=== PATIENT | male | born 1980 | race Caucasian/White ===

== ENCOUNTER 2020-01-11 15:14 | Outpatient (REF) | payer MEDICAID, SELFPAY | END 2020-01-11 15:15 | disposition home or self-care (01) | LOC: HO.LAB 15:14 | PROVIDERS: Visit Provider Internal Medicine | DX: Z20.828 Contact with and (suspected) exposure to other viral communicable diseases (principal) | CPT/HCPCS: C9803; U0003 ==

== ENCOUNTER 2020-01-15 13:47 | Outpatient (REF) | payer MEDICAID, SELFPAY ==
--- NOTE | 2020-01-15 14:03 | XR_ITS ---
EXAMINATION: XR ELBOW, RIGHT CLINICAL INFORMATION: Pain COMPARISON: None TECHNIQUE: AP, lateral, and oblique views of the right elbow. FINDINGS: Bone alignment is normal. No fracture or dislocation is seen. The joint spaces are normal. There is no joint effusion. There is a small osteophyte at the triceps tendon insertion to the olecranon. XR/XR lumbar spine 2-3V IMPRESSION: Small osteophyte at the triceps tendon insertion to the olecranon. EXAMINATION: Lumbar spine x-ray CLINICAL INFORMATION: Pain COMPARISON: Previous exam January 2014 TECHNIQUE: 3 views of the lumbar spine FINDINGS: Bone alignment is normal. No fracture or dislocation is seen. Disc spaces are normal. There is degenerative spondylosis at L4-L5. There is mild lower lumbar spine facet arthritis. IMPRESSION: Mild degenerative changes. EXAMINATION: Right knee x-ray CLINICAL INFORMATION: Pain COMPARISON: None. TECHNIQUE: 4 views of the right knee FINDINGS: Bone alignment is normal. No fracture or dislocation is seen. Joint spaces are normal. There is no joint effusion. There is a small osteophyte at the quadriceps tendon insertion to the patella. IMPRESSION: Small osteophyte at the quadriceps tendon insertion to the patella.
--- NOTE | 2020-01-15 14:03 | XR_ITS ---
EXAMINATION: XR ELBOW, RIGHT CLINICAL INFORMATION: Pain COMPARISON: None TECHNIQUE: AP, lateral, and oblique views of the right elbow. FINDINGS: Bone alignment is normal. No fracture or dislocation is seen. The joint spaces are normal. There is no joint effusion. There is a small osteophyte at the triceps tendon insertion to the olecranon. XR/XR elbow RT min 3V IMPRESSION: Small osteophyte at the triceps tendon insertion to the olecranon. EXAMINATION: Lumbar spine x-ray CLINICAL INFORMATION: Pain COMPARISON: Previous exam January 2014 TECHNIQUE: 3 views of the lumbar spine FINDINGS: Bone alignment is normal. No fracture or dislocation is seen. Disc spaces are normal. There is degenerative spondylosis at L4-L5. There is mild lower lumbar spine facet arthritis. IMPRESSION: Mild degenerative changes. EXAMINATION: Right knee x-ray CLINICAL INFORMATION: Pain COMPARISON: None. TECHNIQUE: 4 views of the right knee FINDINGS: Bone alignment is normal. No fracture or dislocation is seen. Joint spaces are normal. There is no joint effusion. There is a small osteophyte at the quadriceps tendon insertion to the patella. IMPRESSION: Small osteophyte at the quadriceps tendon insertion to the patella.
--- NOTE | 2020-01-15 14:03 | XR_ITS ---
EXAMINATION: XR ELBOW, RIGHT CLINICAL INFORMATION: Pain COMPARISON: None TECHNIQUE: AP, lateral, and oblique views of the right elbow. FINDINGS: Bone alignment is normal. No fracture or dislocation is seen. The joint spaces are normal. There is no joint effusion. There is a small osteophyte at the triceps tendon insertion to the olecranon. XR/XR knee RT 4V IMPRESSION: Small osteophyte at the triceps tendon insertion to the olecranon. EXAMINATION: Lumbar spine x-ray CLINICAL INFORMATION: Pain COMPARISON: Previous exam January 2014 TECHNIQUE: 3 views of the lumbar spine FINDINGS: Bone alignment is normal. No fracture or dislocation is seen. Disc spaces are normal. There is degenerative spondylosis at L4-L5. There is mild lower lumbar spine facet arthritis. IMPRESSION: Mild degenerative changes. EXAMINATION: Right knee x-ray CLINICAL INFORMATION: Pain COMPARISON: None. TECHNIQUE: 4 views of the right knee FINDINGS: Bone alignment is normal. No fracture or dislocation is seen. Joint spaces are normal. There is no joint effusion. There is a small osteophyte at the quadriceps tendon insertion to the patella. IMPRESSION: Small osteophyte at the quadriceps tendon insertion to the patella.
== END 2020-01-15 13:48 | disposition home or self-care (01) ==
LOC: HO.XRAY 13:47
PROVIDERS: Absent Provider Family Medicine; PCP Family Medicine; Visit Provider Emergency Medicine
DX: M25.521 Pain in right elbow (principal); M25.561 Pain in right knee; M54.5 Low back pain
CPT/HCPCS: 72100; 73080; 73564

== ENCOUNTER → 2020-07-08 08:31 | Outpatient (BNVA) | payer SELFPAY | PROVIDERS: PCP Family Medicine; Visit Provider Internal Medicine | DX: Z02.79 Encounter for issue of other medical certificate (principal) ==

== ENCOUNTER 2024-05-08 07:56 | Emergency (ER) | payer BC, SELFPAY ==
--- NOTE | ~2024-05-08 | US_ITS ---
EXAMINATION: US ABDOMEN LIMITED HISTORY: RUQ pain, rule out gallbladder pathology TECHNIQUE: Real-time grayscale ultrasound imaging of the right upper quadrant was performed and images were reviewed. COMPARISON: Comparison is made with the prior examination dated 01/30/2019. FINDINGS: Sonographic examination of the gallbladder was performed. Multiple shadowing calculi are noted in the gallbladder. There is no wall thickening or pericholecystic fluid. The technologist reports a positive sonographic Jang sign, however. The common bile duct is normal in caliber measuring 3 mm in diameter. Incidental note is made of hepatic steatosis with focal fatty sparing adjacent to the gallbladder. US/US abdomen limited IMPRESSION: Cholelithiasis and a positive sonographic Jang's sign. Findings are consistent with acute cholecystitis. Electronically signed by: Enoch Walsh MD 05/08/2024 10:17 AM EDT RP
--- NOTE | ~2024-05-08 | XR_ITS ---
EXAMINATION: XR CHEST 2 VIEWS HISTORY: productive cough COMPARISON: Comparison is made with the prior examination dated 12/02/2016. FINDINGS: PA and lateral views of the chest are submitted. There is chronic elevation of the right hemidiaphragm. There is no pleural effusion, pneumothorax, or pulmonary vascular congestion. The heart is normal in size. There is degenerative disc disease of the spine. The patient is status post internal fixation of the right 5th rib. XR/XR chest 2V IMPRESSION: No acute cardiopulmonary abnormality. Electronically signed by: Enoch Walsh MD 05/08/2024 08:56 AM EDT
--- NOTE | 2024-05-08 07:58 | ECG_ITS ---
Test Reason : chest pain Blood Pressure : */* mmHG Vent. Rate : 86 BPM Atrial Rate : 86 BPM P-R Int : 132 ms QRS Dur : 94 ms QT Int : 386 ms P-R-T Axes : 25 7 21 degrees QTcB Int : 461 ms Normal sinus rhythm Minimal voltage criteria for LVH, may be normal variant ( R in aVL ) Borderline ECG When compared with ECG of 08-Jan-2019 13:03, No significant changes seen Referred By: Generic ED Physician Electronically Signed By: SILVERIO BARRIGA
[2024-05-08 08:09] VITALS: BP 129/90; PULSE 85; RESP 16; TEMP 36.8; O2SAT 97; BMI 34.6
[2024-05-08 08:25] LABS: IDNOW Serial# 58CA691E; Strep A Nucleic Acid Negative (Negative)
[2024-05-08 08:35] LABS: Basophils Percent Auto 0.3 % (0-2); Eosinophils Absolute Auto 0.1 X10*3/uL (0.0-0.4); Eosinophils Percent Auto 2.9 % (0-4); Hematocrit 42.7 % (42.0-52.0); Hemoglobin 15.2 g/dl (14.0-18.0); Imm Gran Abs Auto 0.01 X10*3/uL (0.00-0.03); Imm Gran Pct Auto 0.3 % (0.0-0.4); Lymphocytes Absolute Auto 1.7 X10*3/uL (1.2-4.9); MANUAL DIFF FLAG SCAN; Mean Corpuscular HGB Conc 35.6 g/dl (31.0-36.0); Mean Corpuscular Hemoglobin 29.9 pg (27.0-33.0); Mean Corpuscular Volume 84.1 fL (80.0-98.0); Monocytes Absolute Auto 0.4 X10*3/uL (0.1-1.2); Monocytes Percent Auto 10.1 % (2-11); Neutrophils Absolute Auto 1.5 x10*3/uL (2.0-8.3); Neutrophils Percent Auto 40.4 % (45-73); Platelet Count 172 X10*3/uL (160-400); Red Blood Count 5.08 X10*6/uL (4.60-5.80); Red Cell Distribution Width 13.7 % (11.0-16.0); SCAN SMEAR FLAG 1; White Blood Count 3.8 X10*3/uL (4.8-10.8)
[2024-05-08 08:36] LABS: Appearance Urine Clear; Color Urine Dark Yellow; Glucose Urine UA Negative (Negative); Leukocyte Esterase Urine Trace (Negative); Nitrite Urine Negative (Negative); PH 5.5 (5.0-9.0); UMIC TRIGGER UACC YES; Urine Blood Negative (Negative); Urine Ketones Trace mg/dL (Negative); Urine Protein 30 (1+) mg/dL (Neg-Trace)
[2024-05-08 08:41] LABS: Bacteria Urine None Seen (None Seen); Hyaline Casts Urine 0-2 /LPF (0-2); RBC Urine 0-2 /HPF (0-2); WBC Urine 0-5 /HPF (0-5)
[2024-05-08 08:55] LABS: Alanine Aminotransferase 60 U/L (0-40); Albumin Level 4.3 g/dL (3.5-5.0); Alkaline Phosphatase 79 U/L (39-117); Anion Gap 9 (12-20); Aspartate Amino Transferase 47 U/L (5-37); Bilirubin Direct 0.2 mg/dL (0.0-0.5); Bilirubin Total 0.7 mg/dL (0.0-1.0); Blood Urea Nitrogen 14 mg/dL (9-16); Calcium 8.8 mg/dL (8.4-10.2); Carbon Dioxide 30 mmol/L (22-29); Chloride 103 mmol/L (96-108); Creatinine Clr Calc Pharmacy 125.2; Estimated Glomerular Filt Rate > 60; Glucose Random 116 mg/dL (60-115); Lipase 43 U/L (8-78); Potassium 3.4 mmol/L (3.3-5.1); Sodium 139 mmol/L (135-145); Total Protein 7.4 g/dL (6.5-8.0)
[2024-05-08 09:00] LABS: SLIDE REVIEW VERIFIED
--- NOTE | 2024-05-08 09:07 | ED_ITS ---
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 He is accompanied by his son who is fluent in Telugu. history was obtained both by himself his son as well as a formal distribution center administrator and person. For the last week patient has had a dry cough but only productive with yellow sputum 1st thing in the morning. He has little bit of nasal congestion but he is denying having a sore throat. Does have body aches but no joint pain and no rashes. He reports when he coughs really hard it makes him feel winded and wheeze. he has not had his own inhaler in many years. His son however who was not with him today does have asthma and he has been bothering his inhaler using it 3 to 5 times a day for it helps with his cough. his albuterol rescue inhaler only. Reports intermittent abdominal pain in his right upper quadrant that comes and goes sometimes worse with food. He admits to having a poor appetite and not avoiding any aggravating foods that makes both his GERD as well as gallbladder painful. He reports it as colicky like in nature it is always present and dull never severe no radiation to his back. Denies any angina. He has had no fevers and no chills denying any nausea vomiting and no diarrhea. He is able tolerate p.o. fluids and void regularly. No rashes no travel. Family at home sick With respiratory symptoms well - no one but him and his son who is present has sought medical attention for their sxs. Patient admits to regular EtOH use on the weekends only when he consumes alcohol he does admit to smoking a few tobacco cigarettes. Other than that he is sober during the week. Denies any illicit drug use. About 5 years ago patient was diagnosed with gallstones and was supposed to have surgery to remove it but as he was not interested in this management he stopped going. He has had an endoscopy as well as imaging before per via current GERD he used to take omeprazole but he stopped taking that too. Patient was also referred to pain management for control of his biliary colic but due to his job he did not want to take any of the narcotic medication that was offered to him. he has not seen a primary care provider in 5 years. Related Data Previous Rx's ?Medication ?Instructions ?Recorded albuterol sulfate 90 mcg/actuation 1 inh inhalation QID PRN wheezing 05/08/24 aerosol inhaler #6.7 grams pantoprazole 40 mg tablet,delayed 40 mg PO DAILY #30 tabs 05/08/24 release Allergies Allergy/AdvReac Type Severity Reaction Status Date / Time No Known Allergies Allergy Verified 05/08/24 08:10 [facility] Past Medical History Attestation statement: The following information was validated with the patient. Source: old records reviewed, obtained from family, nursing notes reviewed and other (Gate Attendant present in person) Social History Social History Alcohol intake: current Alcohol intake frequency: a few times a week Smoked in Last 30 Days: Yes Use of substances other than those prescribed or required for medical reasons: No Advance Directives: No Advance Directives Information Provided: No Physical Exam 2 Vital Signs: Vital Signs: Last Vital Signs Temp 98.2 F 05/08/24 08:09 Pulse 88 05/08/24 09:43 Resp 18 05/08/24 09:43 BP 136/96 H 05/08/24 09:43 Pulse Ox 96 05/08/24 09:43 O2 Del Method Room Air 05/08/24 09:43 BMI result Body Mass Index 34.6 well-appearing in no acute respiratory distress male. obese body habitus. surgical scar noted on his right lateral axillary region around the 6th rib region spanning approximately 10 cm no seroma or tenderness noted right upper quadrant tenderness only positive with 2nd time of trying Jang test first-time with distraction negative 2nd time positive no guarding rest of abdomen nontender but obese HEENT: Head: Yes normal to inspection and Yes normocephalic Ears: hearing grossly normal bilaterally General nose exam: Normal external nose present, Normal nares present and Normal nasal mucous membranes and turbinates present Face and sinus: Yes normal facial exam and Yes sinuses nontender Mouth: N ormal oral and palatal mucosa present, lip normal, tongue normal, Normal salivary glands and ducts present, oropharynx normal and moist mucous membranes Teeth and gingiva: dentition normal Throat: Yes posterior oropharynx normal, Yes tonsils normal, Yes uvula midline and Yes postnasal drainage (clear) Eyes: General: appearance normal, both eyes and all related structures A lignment and Position: alignment normal Periorbital: periorbital findings normal Eyelids: Yes eyelids normal Conjunctivae: conjunctivae normal S clerae: sclerae normal Pupils: Equal, round and reactive pupils present Neck: Neck: Yes normal visual inspection, Yes full ROM and Yes no lymphadenopathy Carotids: normal carotid upstroke Chest: Chest palpation & inspection: normal inspection of the chest ( surgical scar noted on the right lateral side of chest from prior lung sx) and normal palpation of entire chest wall Resp: Effort & Inspection: normal respiratory effort and able to speak in complete sentences Auscultation: wheezes upper bilaterally and bronchial breath sounds Cardio: Jugular venous distension: no JVD Rate: regular rate Rhythm: r egular rhythm Skin: Other: warm and well-perfused Neuro: Cranial nerves: Yes Equal, round and reactive pupils present Extrem: General: Yes normal to inspection and Yes capillary refill normal Medical Decision Making Medical Decision Making MDM Narrative: 44 year old patient presenting to the ED today for evaluation of respiratory symptoms with known household exposures of influenza. History and physical as noted above. Presentation most consistent with primary Viral Syndrome. upon a history noted of GERD as well as gallstones. Given his loss of care and mild tenderness right upper quadrant ultrasound was ordered. screening abdominal labs done as well no evidence today for cholecystitis or concerns for cholangitis. Abdominal labs drawn patient does have mild elevation of his liver enzymes consistent with his regular use of alcohol but does not appear to be in withdrawal at this time less concerning for acute hepatitis a viral etiology warranting further workup. or referral outpatient to Gastroenterology as well as PCP ED precautions given for his gallbladder. Based on vitals and exam, they are nontoxic and stable for discharge. Given History and Exam I have a lower suspicion for: Emergent CardioPulmonary causes such as Acute Asthma or COPD Exacerbation, acute Heart Failure or exacerbation, PE, PTX, atypical ACS, PNA. Chest x-ray is clear he is saturating above 95% on room air he is not currently an asthma exacerbation but given history of asthma with no current inhaler ( no prior hospitalizations or intubations for it) I will send 1 to the pharmacy for him. oral steroids and oral antibiotics not indicated Emergent Otolaryngeal causes such as COUNTER CHECKER, RPA, Ludwigs, Epiglottitis, EBV unlikely. GROUP HOME score is -1. Able to tolerate PO fluids and hydrated not warranting IVF or pain medication. COVID negative. and was given strict ED return precautions he demonstrated verbal understanding of plan and agreed with discharged home stable Differential Diagnosis Differential Diagnoses: The differential diagnosis associated with the presentation includes See above in [facility] Admission/Observation higher level of care was considered if the labs and the being abnormal there is an evidence for cholecystitis or further gallbladder pathology however reassuring and therefore was deferred. Lab Data [facility] Lab Attestation statement: I reviewed the patient's lab results. 05/08/24 08:23 05/08/24 08:23 Labs: Lab Results 05/08/24 05/08/24 Range/Units 08:07 08:23 WBC 3.8 L (4.8-10.8) X10*3/uL RBC 5.08 (4.60-5.80) X10*6/uL Hgb 15.2 (14.0-18.0) g/dl Hct 42.7 (42.0-52.0) % MCV 84.1 (80.0-98.0) fL MCH 29.9 (27.0-33.0) pg MCHC 35.6 (31.0-36.0) g/dl RDW 13.7 (11.0-16.0) % Plt Count 172 (160-400) X10*3/uL MPV 10.0 (9.4-12.4) fL Immature Gran % (Auto) 0.3 (0.0-0.4) % Neut % (Auto) 40.4 L (45-73) % Lymph % (Auto) 46.0 H (20-40) % [place] % (Auto) 10.1 (2-11) % Eos % (Auto) 2.9 (0-4) % Baso % (Auto) 0.3 (0-2) % Lymph # (Auto) 1.7 (1.2-4.9) X10*3/uL [place] # (Auto) 0.4 (0.1-1.2) X10*3/uL Eos # (Auto) 0.1 (0.0-0.4) X10*3/uL Baso # (Auto) 0.0 (0.0-0.2) X10*3/uL Abs Immat Gran (auto) 0.01 (0.00-0.03) X10*3/uL Absolute Neuts (auto) 1.5 L (2.0-8.3) x10*3/uL Absolute Nucleated RBC 0.000 (0.0-0.012) X10*3/uL Nucleated RBC % (auto) 0.0 (0.0-0.2) /100WBC Smear Tech's Comments VERIFIED Sodium 139 (135-145) mmol/L Potassium 3.4 (3.3-5.1) mmol/L Chloride 103 (96-108) mmol/L Carbon Dioxide 30 H (22-29) mmol/L Anion Gap 9 L (12-20) BUN 14 (9-16) mg/dL Creatinine 0.84 (0.5-1.4) mg/dL Estim Creat Clear Calc 125.2 Estimated GFR > 60 Random Glucose 116 H (60-115) mg/dL Calcium 8.8 (8.4-10.2) mg/dL Total Bilirubin 0.7 (0.0-1.0) mg/dL Direct Bilirubin 0.2 (0.0-0.5) mg/dL AST 47 H (5-37) U/L ALT 60 H (0-40) U/L Alkaline Phosphatase 79 (39-117) U/L Total Protein 7.4 (6.5-8.0) g/dL Albumin 4.3 (3.5-5.0) g/dL Lipase 43 (8-78) U/L Urine Color Dark Yellow Urine Appearance Clear Urine pH 5.5 (5.0-9.0) Ur Specific [place] 1.020 (1.005-1.025) Urine Protein 30 (1+) H (Neg-Trace) mg/dL Urine Glucose (UA) Negative (Negative) mg/dL Urine Ketones Trace (Negative) mg/dL Urine Blood Negative (Negative) Urine Nitrite Negative (Negative) Ur Leukocyte Esterase Trace H (Negative) Urine RBC 0-2 (0-2) /HPF Urine WBC 0-5 (0-5) /HPF Ur Squamous Epith Cells 3-5 (0-2) /HPF Urine Bacteria None Seen (None Seen) Hyaline Casts 0-2 (0-2) /LPF Influenza Type A (PCR) NEGATIVE (Negative) Influenza Type B (PCR) POSITIVE A (Negative) RSV RNA Qual (PCR) NEGATIVE (Negative) SARS-CoV-2 RNA (RT-PCR) NEGATIVE (Negative) S. pyogenes GrpA NABIL Negative (Negative) Independent Interpretation I performed an independent interpretation of an: Plain X-Ray and Ultrasound Interpretation: no acute findings Radiology Impression Discussion of test interpretation with radiology: I have reviewed the radiologist's reading. Radiologist Impression: normal chest x-ray gallstones on the right upper quadrant ultrasound without any sludge or gallbladder wall thickening which argues against cholecystitis normal white count. Independent Historian Clinical information obtained from an independent historian. History obtained from or confirmed by: Other family and waiter/waitress dining car Tests considered The following testing was considered but not selected: See MDM Prescription Management I considered prescription management with: Pain Medication, Antiviral and Antibiotic as he is non day 7 of symptoms antiviral for influenza was deferred. As there is no clinical evidence for bacterial infection of his respiratory tract or cholecystitis antibiotics were deferred. He is not currently in an asthma exacerbation oral steroids were also deferred as well as nebulization. Chronic Conditions Patient?s care impacted by: Other (GERD, ASTHMA) Discharge Plan Discharge Clinical Impression: Influenza B, Chronic GERD, Hepatic steatosis Acute bronchitis Qualifiers: Bronchitis organism: other organism Qualified Code(s): J20.8 - Acute bronchitis due to other specified organisms Cholelithiasis without obstruction Qualifiers: Cholelithiasis location: gallbladder Cholecystitis presence: with cholecystitis Cholecystitis acuity: chronic Qualified Code(s): K80.10 - Calculus of gallbladder with chronic cholecystitis without obstruction Asthma Qualifiers: Asthma severity: mild Asthma persistence: intermittent Asthma complication type: uncomplicated Qualified Code(s): J45.20 - Mild intermittent asthma, uncomplicated Patient Disposition: Home, Self-Care Instructions: Asthma (ED), Gallstones (ED), Liver Disease Diet (DC), Influenza (ED), Acute Bronchitis (ED), Gastroesophageal Reflux Disease (DC), How Your Lungs Work (ED), Laparoscopic Cholecystectomy (DC) Additional Instructions: you were seen in the emergency department today for multiple medical complaints some of chronic nature. As you been lost her primary care I will re-initiate saw her medications but it is imperative that you do follow up with your primary care provider as well as a freight car repairer versus general surgeon to discuss further care of your gallbladder. There was stones noted on your ultrasound today however no acute evidence of infection. you had mild elevation of your liver enzymes and incidentally on the ultrasound showed that you had hepatic steatosis with focal fatty likely due to alcohol use versus genetics. is recommended he follow up with this with the freight car repairer as well as well as your primary care provider. Please try to limit her alcohol intake and adjust your diet accordingly. he tested positive for influenza B today but due to her symptoms starting a week ago you are not a candidate for Tamiflu. You had a chest x-ray done today that shows no evidence for pneumonia. You had mild wheezing on exam but no evidence of a asthma exacerbation this would be consistent with bronchitis likely due to viral etiology. I have given you a new asthma inhaler to use your not bothering her sons. Is recommended you continue to follow up with your primary care provider for this as well for potential pulmonary function testing to see if this is appropriate for you to stay on versus made a different medication. If you develop any new or concerning symptoms please return to the emergency department especially for new onset of chest pain shortness of breath difficulty with breathing or worsening abdominal discomfort. Prescriptions: New albuterol sulfate 90 mcg/actuation HFA aerosol inhaler 1 inh inhalation QID PRN (Reason: wheezing) Qty: 6.7 0RF pantoprazole 40 mg tablet,delayed release (DR/EC) 40 mg PO DAILY Qty: 30 0RF Ref[place]: [facility] [place] [facility] [place] Group] [facility] [place]Provider Group] Magaly Argueta DO [Primary Care Provider] - Print Language: Cypriot
[2024-05-08 09:43] VITALS: BP 136/96; PULSE 88; RESP 18; O2SAT 96
--- NOTE | 2024-05-08 09:49 | PC.NURSE ---
Pt reports flu like sx with chronic ruq abd pain and nausea. States known h/o gallstones without follow up. Awaiting ultrasound.
[2024-05-08 09:51] LABS: Influenza A PCR NEGATIVE (Negative); Influenza B PCR POSITIVE (Negative); Resp Syncy Virus RNA Qual PCR NEGATIVE (Negative); SARS COV2 PCR INHOUSE NEGATIVE (Negative)
[2024-05-08 11:01] VITALS: BP 136/96; PULSE 88; RESP 18; TEMP 36.7; O2SAT 96
== END 2024-05-08 11:02 | disposition home or self-care (01) ==
PROVIDERS: Emergency Provider Emergency Medicine; PCP Family Medicine
DX: J10.1 Influenza due to other identified influenza virus with other respiratory manifestations (principal); J20.8 Acute bronchitis due to other specified organisms; K80.10 Calculus of gallbladder with chronic cholecystitis without obstruction; K21.9 Gastro-esophageal reflux disease without esophagitis; K76.0 Fatty (change of) liver, not elsewhere classified; R05.9 Cough, unspecified; R50.9 Fever, unspecified; Z03.818 Encounter for observation for suspected exposure to other biological agents ruled out
CPT/HCPCS: 0241U; 36415; 71046; 76705; 80048; 80076; 81001; 83690; 85025; 87651; 93005; 99284; 99285

== ENCOUNTER → 2024-05-08 07:58 | Outpatient (BNV) | payer BC, SELFPAY | PROVIDERS: Emergency Provider Emergency Medicine; PCP Family Medicine; Visit Provider Internal Medicine | DX: R07.9 Chest pain, unspecified (principal) | CPT/HCPCS: 93010 ==

== ENCOUNTER → 2024-05-08 08:16 | Outpatient (BNV) | payer BC, SELFPAY | PROVIDERS: PCP Family Medicine; Visit Provider Radiology Diagnostic Radiology | DX: K80.00 Calculus of gallbladder with acute cholecystitis without obstruction (principal); R05.9 Cough, unspecified | CPT/HCPCS: 71046; 76705 ==

== ENCOUNTER 2024-05-22 15:12 | Outpatient (AMB) | payer BC, SELFPAY ==
--- NOTE | 2024-05-22 15:16 | MHC.OFFVIS ---
Vital Signs 05/22/24 15:25 Height 5 ft 7 in Weight 227 lb BMI 35.5 BP 132/80 Blood Pressure Location Lt brachial Position Sitting Pulse 79 Intake Visit Reasons: gallbladder Intake Note: Patient is seen in office for ER follow up visit, gallbladder. Pt c/o:went to ED due to influenza, had ultrasound done and was told about the gallbladder, denies any symptoms, RUQ pain sometimes ER/us:05/08/24 Resident Services Coordinator Required: Yes Resident Services Coordinator Language: Java Development Team Lead Name: Elena HANCOCK Information Interpreted: non-clinical & clinical Accompanied by: Family/Other Allergies No Known Allergies Allergy (Verified 05/22/24 15:23) Medication List - Last Reconciled 05/23/24 by Duane Verdin MD No Known Home Meds HPI Comments Details: 44-year-old male patient presenting for evaluation of abdominal pain located in the right upper quadrant. He has a known history of gallstones and recently was evaluated in the emergency department for flu-like symptoms. He was determined to have influenza a. At the time of examination he was noted to be tender in the right upper quadrant and subsequently underwent further evaluation with ultrasound of the abdomen. This revealed again gallstone within the gallbladder with no evidence of wall thickening or pericholecystic fluid. Common bile duct was noted to be normal as well. The gallbladder was tender palpation with the ultrasound probe suggestive of acute cholecystitis. He reports he continues to have some coughing as a result of influenza. The abdominal pain comes and goes in his occasionally associated with food intake. He presents today to discuss possible cholecystectomy. [facility] Surgical History History of lung surgery Family History Father Leukemia Social History Alcohol intake: current Alcohol intake frequency: a few times a week Patient Tobacco Use Status: Current someday Tobacco user Review of Systems Const All systems reviewed & are unremarkable except as noted in HPI and below Physical Exam Vital Signs: Last Vital Signs Pulse 79 05/22/24 15:25 BP 132/80 05/22/24 15:25 BMI result Body Mass Index 35.5 Const General: cooperative and no acute distress Nutritional Appearance: well nourished Orientation/consciousness: patient oriented x3 Limitations: no limitations HEENT Head: Yes normocephalic and Yes atraumatic Ears: hearing grossly normal bilaterally Resp Effort & Inspection: normal respiratory effort, no audible wheezes, no cough and no respiratory distress Cardio Jugular venous distension: no JVD GI Inspection: Yes normal to inspection Palpation (GI): Soft to palpation, Tenderness to palpation present (GI) in the RUQ and Jang's sign positive, no guarding and not rigid Percussion: Yes normal to percussion Auscultation: normal bowel sounds Rectal Exam - Male: Yes deferred Skin Other: Warm, dry, no rash Neuro General: patient oriented x3 Extrem General: Yes no clubbing, cyanosis or edema Assessment & Plan Assessment & Plan (1) Cholecystitis, acute with cholelithiasis: Code(s): K80.00 - Calculus of gallbladder with acute cholecystitis without obstruction Category: Medical Qualifiers: Biliary obstruction: without biliary obstruction Qualified Code(s): K80.00 - Calculus of gallbladder with acute cholecystitis without obstruction Plan 44-year-old male patient presenting with complaints of abdominal pain in the right upper quadrant found to have gallstones in the gallbladder. Patient was also noted to have a sonographic Jang sign suggestive of acute cholecystitis. On examination today, he was noted to have some tenderness in the right upper quadrant and a positive Jang sign. Findings are suggestive of acute cholecystitis. He does have ongoing flu symptoms with a cough therefore I suggested waiting several weeks before proceeding with surgery to assure resolution of the respiratory symptoms. I reviewed the procedure, risks, and alternatives of laparoscopic or possible open cholecystectomy and he consents to the surgery. He will be scheduled as a short-stay surgery. Medications: Discontinued pantoprazole Discontinued Reason: Patient Completed Course 40 mg PO DAILY 30 tabs 0RF albuterol sulfate 90 mcg/actuation Discontinued Reason: Patient Completed Course 1 inh inhalation QID PRN 6.7 grams 0RF wheezing Coding Level of Care Code New Pt Level 4 (03074) Diagnoses Calculus of gallbladder with acute cholecystitis without obstruction K80.00 Biliary obstruction: without biliary obstruction
[2024-05-22 15:25] VITALS: BP 132/80; PULSE 79; BMI 35.5
== END 2024-05-22 15:37 | disposition home or self-care (01) ==
LOC: HO.HGS 15:12
PROVIDERS: PCP Family Medicine; Visit Provider Surgery
DX: K80.00 Calculus of gallbladder with acute cholecystitis without obstruction (principal)
CPT/HCPCS: 99204